=== PATIENT | female | born 1985 | race Caucasian/White ===

== ENCOUNTER 2025-04-01 05:57 | Day surgery (SDC) | payer BC, SELFPAY ==
[2025-03-31 21:03] VITALS: BP 143/86
[2025-03-31 21:25] LABS: Urine Character Cloudy (Clear)
[2025-03-31 21:26] LABS: Hematocrit 37.9 % (37.0-47.0); Hemoglobin 12.5 g/dL (12.0-16.0); Mean Corp Hgb Conc. 33.0 g/dL (33.0-37.0); Mean Corpuscular Volume 85.0 fL (81.0-99.0); Nucleated Red Blood Cells % 0 %; Platelet Count 181 10^3/uL (130-400); Red Cell Dist. Width 12.9 % (11.5-14.5)
[2025-03-31 21:39] LABS: HCG, Serum Qualitative Screen Negative
[2025-03-31 21:40] LABS: Urine Squamous Cell 0-2 /LPF (Few)
[2025-03-31 21:41] LABS: Urine Red Blood Cell >100 /HPF (0-2)
[2025-03-31 21:45] LABS: ALT (SGPT) 28 U/L (0-35); AST (SGOT) 25 U/L (14-36); Albumin 4.7 g/dl (3.5-5.0); Alkaline Phosphatase 73 U/L (38-126); Blood Urea Nitrogen 14 mg/dl (7-17); Calcium 9.7 mg/dl (8.4-10.2); Carbon Dioxide 26 mmol/L (22-30); Chloride 103 mmol/L (98-107); Glucose 119 mg/dl (70-99); Lipase 103 U/L (23-300); Sodium 137 mmol/L (135-145); Total Protein 8.0 g/dl (6.3-8.2); eGFR > 60.00
[2025-03-31 21:50] LABS: Potassium 4.2 mmol/L (3.5-5.1)
[2025-04-01] VITALS (8 sets, daily range): BP systolic 98–123; BP diastolic 53–72; BMI 29.7
--- NOTE | 2025-04-01 00:04 | ED.GENMED ---
History of Present Illness
<Bill Da Silva MD, Resident - Last Filed: 04/01/25 05:21>
General
Chief Complaint: Abdominal Pain
Source: patient and spouse
Exam Limitations: none
Time Seen by Provider: 03/31/25 23:57
History of Present Illness
History of Present Illness:
39-year-old female who complains of sudden, severe, sharp, intermittent right sided abdominal pain that radiates to the back since 6 PM today and has gotten progressively worse. Not relieved on pain medication. Associated with multiple episodes
of nausea with no vomiting. Zofran did not work to alleviate nausea. Never had a previous clinical presentation like this before. No previous history of kidney stone or usage of loop diuretics. No cough, fever, chills, urinary symptoms, diarrhea,
constipation, fatigue, shortness of breath, chest pain.
Phy Exam
<Bill Da Silva MD, Resident - Last Filed: 04/01/25 05:21>
General Physical Exam
General Presentation: well appearing and no apparent distress
General Skin: warm
General Mental: alert
Cardiovascular Exam
Cardiovascular Exam: regular rate/rhythm and no edema
Course
<Bill Da Silva MD, Resident - Last Filed: 04/01/25 05:21>
Orders/Labs/Results
Orders:
Orders
03/31/25 21:07
Test Result ONCE
03/31/25 21:16
Complete Blood Count/With Diff Urgent
Comprehensive Metabolic Panel Urgent
HCG, Serum Qualitative Screen Urgent
Comment: Notify provider if positive test present
Lipase Urgent
Urinalysis Reflex To Culture Urgent
Date Specimen was Collected: 03/31/25
Time Specimen was Collected: 21:07
Urine Microscopic Reflex Cult Urgent
Urine Culture Urgent
OLGA Source: U
Specimen Description:
Date Specimen was Collected: 03/31/25
Time Specimen was Collected: 21:07
04/01/25 00:25
Ketorolac [Toradol] 30 mg IM NOW STA
04/01/25 00:26
Abdomen/Pelvis wo Contrast CT [CT Abd/pelvis Wo Iv Cont] Urgent
Comment:
Reason For Exam: abdominal pain
04/01/25 02:25
US Abdomen Complete/Upper Urgent
Comment:
Reason For Exam: RUQ abd pain,
04/01/25 05:21
HYDROmorphone [Dilaudid] 0.5 mg IV NOW STA
04/01/25 05:37
Admit/Transfer Patient As Directed
Co-Sign Provider:
Level of Care: Observation services
Assign to:: Medical/Surgical
Physician / Group: Gómez
Diagnosis: biliary colic
Code Status As Directed
Resuscitation Status: Full Code
PRN Pain Medication Management As Directed
May give lesser potent ordered pain med per pt: Yes
preference::
Protocol:: Medication orders for pain may be administered in a
manner that supports deferring to patient preference
when the pt is:
- Requesting an ordered lesser potent pain medication.
Least to most potent pain medications are defined
as: acetaminophen < NSAID < tramadol < opioids
(morphine, oxycodone, hydromorphone).
- Requesting a lesser dose of the same medication IF
ORDERED.
- Requesting a less intrusive route of administration
if both routes are prescribed by the provider (PO <
IV).
04/01/25 Breakfast
NPO
Allow oral meds: Yes
Allow clear liquids: Sips of Clears
04/01/25 07:23
0.9% Sodium Chloride 1000 ml [Nss] 1,000 ml IV 125 mls/hr
Acetaminophen [Tylenol] 650 mg PO Q4HPRN PRN
Ketorolac [Toradol] 10 mg IV Q6HPRN PRN
Ondansetron Injectable [Zofran] 4 mg IV Q6HPRN PRN
04/01/25 07:23
MR Mrcp Without Routine
Comment:
Reason For Exam: cbd dilation, eval obstructing stone
Recent pill cam endoscopy?: No
Activity As Directed
Activity Level: With Assistance
Pneumatic Compression Sleeves As Directed
Type: Knee high
Vital Signs As Directed
Frequency: Per unit guidelines
DX Deep Vein Thrombosis Video Routine
04/01/25 08:00
Famotidine [Pepcid] 20 mg IV Q12
04/01/25 09:30
HYDROmorphone [Dilaudid] 0.5 mg IV Q4HPRN PRN
04/02/25 06:00
Basic Metabolic Panel IN AM
Complete Blood Count/No Diff IN AM
LFT [Oylzc-Vlrx-Ickhtmj] IN AM
Abnormal Lab Results
03/31/25
21:16
MPV 11.1 H fL
(7.4-10.4)
Absolute Lymphs (auto) 1.1 L 10^3/uL
(1.2-3.4)
Lymphocytes % 15.1 L %
(20.5-51.1)
Glucose 119 H mg/dl
(70-99)
Ur Occult Blood Reflex 4+ A
(Negative)
Leukocyte Esterase Rfl 2+ A
(Negative)
Urine RBC >100 A /HPF
(0-2)
Urine Bacteria (Reflex) Moderate A
(Negative)
Urine Albumin (Reflex) 2+ A
(Neg - Trace)
03/31/25 21:16
03/31/25 21:16
Vital Signs
Initial and Last Documented VS:
Initial Vital Signs
Temp Pulse Resp BP Pulse Ox
98.4 F 78 18 143/86 97
03/31/25 21:03 03/31/25 21:03 03/31/25 21:03 03/31/25 21:03 03/31/25 21:03
Last Documented Vital Signs
Temp Pulse Resp BP Pulse Ox
98.4 F 55 18 99/58 99
03/31/25 21:03 04/01/25 04:17 04/01/25 04:17 04/01/25 05:27 04/01/25 05:30
<Adis Spence, DO - Last Filed: 04/01/25 07:44>
Orders/Labs/Results
Orders:
Orders
03/31/25 21:07
Test Result ONCE
03/31/25 21:16
Complete Blood Count/With Diff Urgent
Comprehensive Metabolic Panel Urgent
HCG, Serum Qualitative Screen Urgent
Comment: Notify provider if positive test present
Lipase Urgent
Urinalysis Reflex To Culture Urgent
Date Specimen was Collected: 03/31/25
Time Specimen was Collected: 21:07
Urine Microscopic Reflex Cult Urgent
Urine Culture Urgent
OLGA Source: U
Specimen Description:
Date Specimen was Collected: 03/31/25
Time Specimen was Collected: 21:07
04/01/25 00:25
Ketorolac [Toradol] 30 mg IM NOW STA
04/01/25 00:26
Abdomen/Pelvis wo Contrast CT [CT Abd/pelvis Wo Iv Cont] Urgent
Comment:
Reason For Exam: abdominal pain
04/01/25 02:25
US Abdomen Complete/Upper Urgent
Comment:
Reason For Exam: RUQ abd pain,
04/01/25 05:21
HYDROmorphone [Dilaudid] 0.5 mg IV NOW STA
04/01/25 05:37
Admit/Transfer Patient As Directed
Co-Sign Provider:
Level of Care: Observation services
Assign to:: Medical/Surgical
Physician / Group: Gómez
Diagnosis: biliary colic
Code Status As Directed
Resuscitation Status: Full Code
PRN Pain Medication Management As Directed
May give lesser potent ordered pain med per pt: Yes
preference::
Protocol:: Medication orders for pain may be administered in a
manner that supports deferring to patient preference
when the pt is:
- Requesting an ordered lesser potent pain medication.
Least to most potent pain medications are defined
as: acetaminophen < NSAID < tramadol < opioids
(morphine, oxycodone, hydromorphone).
- Requesting a lesser dose of the same medication IF
ORDERED.
- Requesting a less intrusive route of administration
if both routes are prescribed by the provider (PO <
IV).
04/01/25 Breakfast
NPO
Allow oral meds: Yes
Allow clear liquids: Sips of Clears
04/01/25 07:23
0.9% Sodium Chloride 1000 ml [Nss] 1,000 ml IV 125 mls/hr
Acetaminophen [Tylenol] 650 mg PO Q4HPRN PRN
Ketorolac [Toradol] 10 mg IV Q6HPRN PRN
Ondansetron Injectable [Zofran] 4 mg IV Q6HPRN PRN
04/01/25 07:23
MR Mrcp Without Routine
Comment:
Reason For Exam: cbd dilation, eval obstructing stone
Recent pill cam endoscopy?: No
Activity As Directed
Activity Level: With Assistance
Pneumatic Compression Sleeves As Directed
Type: Knee high
Vital Signs As Directed
Frequency: Per unit guidelines
DX Deep Vein Thrombosis Video Routine
04/01/25 08:00
Famotidine [Pepcid] 20 mg IV Q12
04/01/25 09:30
HYDROmorphone [Dilaudid] 0.5 mg IV Q4HPRN PRN
04/02/25 06:00
Basic Metabolic Panel IN AM
Complete Blood Count/No Diff IN AM
LFT [Ktrfr-Owee-Xqrcpsa] IN AM
Abnormal Lab Results
03/31/25
21:16
MPV 11.1 H fL
(7.4-10.4)
Absolute Lymphs (auto) 1.1 L 10^3/uL
(1.2-3.4)
Lymphocytes % 15.1 L %
(20.5-51.1)
Glucose 119 H mg/dl
(70-99)
Ur Occult Blood Reflex 4+ A
(Negative)
Leukocyte Esterase Rfl 2+ A
(Negative)
Urine RBC >100 A /HPF
(0-2)
Urine Bacteria (Reflex) Moderate A
(Negative)
Urine Albumin (Reflex) 2+ A
(Neg - Trace)
03/31/25 21:16
03/31/25 21:16
Vital Signs
Initial and Last Documented VS:
Initial Vital Signs
Temp Pulse Resp BP Pulse Ox
98.4 F 78 18 143/86 97
03/31/25 21:03 03/31/25 21:03 03/31/25 21:03 03/31/25 21:03 03/31/25 21:03
Last Documented Vital Signs
Temp Pulse Resp BP Pulse Ox
98.4 F 55 18 99/58 99
03/31/25 21:03 04/01/25 04:17 04/01/25 04:17 04/01/25 05:27 04/01/25 05:30
<Bill Da Silva MD, Resident - Last Filed: 04/01/25 05:21>
MDM/Problems Addressed
Differential Diagnosis Includes:
ureteral colic, diverticulitis, cholecystitis, cholangitis, pancreatitis, bile duct stone/ tumour
MDM/Problems Addressed:
- CBC unremarkable
- CMP unremarkable
- CT abdomen pelvis unremarkable
- UA shows 100+ rbc ( patient is having menstrual period), moderate bacteria, 2+ leucocyte esterase
- RUQ u/s shows dilated common bile duct, patient needs MRCP
will admit patient for MRCP.
<Bill Da Silva MD, Resident - Last Filed: 04/01/25 05:21>
*Pulse Oximetry
SaO2: 97
Oxygen Mode of Delivery: Room air
Patient hypoxic: no
*Critical Care Note
Total Time (30-74mins, 75-104mins- exclusive of procedures): Not Applicable
<Adis Spence DO - Last Filed: 04/01/25 07:44>
Update Note
Update Note:
NAME: SHRUTHI MILLER
DATE OF EXAM: 04/01/2025
Patient No: [id number]
Physician: PHILIPP
Date of : 1985
Past Medical History (entered by Technologist):
Reason For Exam (entered by Technologist): back pain, nausea
Other Notes (entered by Technologist): no prior
Additional Information (per [facility]):
CT abdomen/pelvis without contrast
IMPRESSION:
-No acute abnormality identified in the abdomen or pelvis
-Mild cholelithiasis without evidence of acute cholecystitis
-No evidence of ureteral stones, hydronephrosis, or perinephric stranding
-Probable appendectomy
Case finalized on 04/01/25 01:20 EST
Isai Blackman MD
This report has been electronically signed and verified by the Radiologist whose name is printed above.
ED Attending Note
<Bill Da Silva MD, Resident - Last Filed: 04/01/25 05:21>
-
Portions of this chart may have been created with voice recognition software.� Occasional wrong word or��sound alike� substitutions may have occurred due to the inherent limitations of voice recognition software.
<Adis Spence DO - Last Filed: 04/01/25 07:44>
ED Attending Note
Patient seen and examined by attending physician: Yes
ED Attending Note:
Note:
CHIEF COMPLAINT(S)
Severe upper right abdominal pain radiating to the back.
HISTORY OF PRESENT ILLNESS
The patient is a 39-year-old male presenting with severe upper right abdominal pain that radiates to the back. The pain was noted by the patient to involve the right upper quadrant of the abdomen as well. He describes having recurrent episodes of
pain. Upon arrival at the facility, the patient mentioned vaginal bleeding, attributable to menstruation. The patient has a history of recurrent urinary tract infections (UTIs) occurring thrice over several months, with cultures revealing
Streptococcus Group B in one instance. However, he is currently asymptomatic with respect to urinary issues. Urinalysis conducted showed potential contamination, though without immediate concern.
Further lab work and a computed tomography (CT) scan were unremarkable for acute pathology, suggesting the possibility of biliary colic from a gallstone that has passed. The patient has experienced similar issues in the past, with gallstones managed
conservatively. Previous evaluations revealed gallstones that were not deemed large enough for surgical removal at the time. The patient had a gastrointestinal evaluation at [facility] and was due for a routine review.
PAST MEDICAL AND SURGICAL HISTORY
History of gallstones.
REVIEW OF SYSTEMS
- Gastrointestinal: Upper right abdominal pain with radiation to the back.
- Genitourinary: History of recurrent urinary tract infections, currently asymptomatic.
PHYSICAL EXAM
General: Alert, mild acute distress.
Skin: Warm, dry.
Head: Normocephalic, atraumatic.
Neck: Supple, trachea midline.
Eye Ears, Nose, Mouth and Throat: Oral mucosa moist.
Cardiovascular: Normal peripheral perfusion, no edema.
Respiratory: Respirations are non-labored.
Gastrointestinal: Tenderness in the right upper quadrant. Negative Casper sign
Back: Normal range of motion, normal alignment.
Musculoskeletal: Normal range of motion, normal strength.
Neurological: Alert and oriented to person, place, time, and situation, no focal neurological deficit observed.
Psychiatric: Cooperative, appropriate mood & affect.
PROBLEM LIST
Acute Problems:
- Biliary colic due to passing gallstone
- Recurrent urinary tract infections (UTIs)
PLAN
- The patient is advised to follow up with surgery for evaluation of possible gallbladder removal, particularly considering the recurrent nature of the gallstone issues and prior history.
- Recommendation for an ultrasound to further evaluate the gallstones if desired by the patient to clarify the current situation.
- Continue with outpatient follow-up at the usual schedule unless symptoms worsen.
DIFFERENTIAL DIAGNOSIS
The Differential Diagnosis includes, in no particular order and is not limited to:
1. Biliary colic
2. Cholecystitis
3. Peptic ulcer disease
4. Pancreatitis
5. Hepatitis
6. Nephrolithiasis
7. Pleuritic pain
8. Musculoskeletal pain
9. Appendicitis
10. Herpes zoster
NAME: SHRUTHI MILLER
DATE OF EXAM: 04/01/2025
Patient No: [id number]
Physician: RAAD^Ha
Date of : 1985
Past Medical History (entered by Technologist):
Reason For Exam (entered by Technologist): f/u to ct. eval gb. ruq pain
Other Notes (entered by Technologist): gb sludge, multiple polyps, gravel.
2 stones vs. polyps measures(not mobile)
Additional Information (per [facility]):
US abdomen
IMPRESSION:
Cholelithiasis without cholecystitis. Small gallbladder polyps of no clinical significance. Negative Casper sign. Common bile duct dilated at 7 mm; consider MRCP.
Case finalized on 04/01/25 04:49 EDT
Yaniv Lewis M.D.
This report has been electronically signed and verified by the Radiologist whose name is printed above.
Discharge Plan
Departure
Patient Disposition: Admit
Date of Disposition: 04/01/25
Time of Disposition: 05:16
Presentation/result/management discussed w/ accepting MD/DO: Hospitalist
Patient with high blood pressure during this ER visit?: Yes
Discharge Problem:
Gallstone
Interventions
Interventions:
*Risk Screen - Suicide Last Done: 03/31/25 21:03
*General Assessment Last Done: 04/01/25 04:18
*Neglect/Abuse Screening Last Done: 04/01/25 04:18
*ED- Fall Risk Assessment Last Done: 04/01/25 00:46
*ED COVID-19 Vaccine History Last Done: 04/01/25 04:17
*ED Influenza Vaccine History Last Done: 04/01/25 04:17
GT-Eyrytu-Cajioewjis Assessment Last Done: 04/01/25 00:44
[2025-04-01] MEDS: TORADOL 30 MG IM (00:35)
[2025-04-01] MEDS: DILAUDID 0.5 MG IV (05:32)
--- NOTE | 2025-04-01 05:32 | HPS.HSE ---
Family Physician
-
Family Physician: Joya Canales MD
Chief Complaint
-
Abdominal pain
History of Present Illness
This is a 39-year-old female with past medical history significant for prior C-sections, appendectomy and tonsillectomy who presents to the emergency department with abdominal pain.
She reports onset of right upper quadrant abdominal pain that radiates to the back. She denies any vomiting. She denies any urinary symptoms including dysuria frequency urgency or incontinence. She denies any fevers or chills. She denies any
prior such symptoms. She denies constipation.
She attempted to put some warm pads and a right upper quadrant but she had had continued pain.
Patient states she has history of biliary stones and has been followed by GI at [facility], [place]. He states they have been following the size 'and it has been less than 7 mm'. She is pending a follow-up examination at the end of the year.
In the emergency department she was afebrile, blood pressure was 99/50 with a pulse of 55 and she was satting 97% on room air.
CBC was unremarkable. Electrolyte BUN/creatinine were normal. LFTs were normal.
She had a right upper quad ultrasound which showed cholelithiasis without cholecystitis. Common bile duct was [address]
CT of the abdomen pelvis without any evidence of small bowel obstruction.
Medical History
Past Medical History
Past Medical History: Reports None
Past Surgical History: Reports Appendectomy, and Tonsilectomy
Social History
Tobacco: Non-smoker
Alcohol: None
Drug: None
Family History
Family History: Not pertinent
Allergies / Home Medications
Allergies reflects when Allergies were last updated in [facility]
Home Medications with original date entered in [facility]
Allergy/Medication List:
Allergies
Allergy/AdvReac Type Severity Reaction Status Date / Time
No Known Allergies Allergy Unverified 03/31/25 21:03
Review of Systems
-
History Source: Patient
Constitutional: Reports No Symptoms
EENT: Reports No Symptoms
Respiratory: Reports No Symptoms
Cardiac: Reports No Symptoms
Abdomen/GI: Reports Abdominal Pain and Nausea
: Reports No Symptoms
Musculoskeletal: Reports No Symptoms
Skin: Reports No Symptoms
Neurological: Reports No Symptoms
Endocrine: Reports No Symptoms
Hematologic/Lymphatic: Reports No Symptoms
Psych: Reports No Symptoms
Physical Exam
Vital Signs
Vital Signs
Temp Pulse Resp BP Pulse Ox
98.4 F 55 18 99/53 97
03/31/25 21:03 04/01/25 04:17 04/01/25 04:17 04/01/25 04:17 04/01/25 04:17
Physical Exam
General: Well Developed, Well Nourished and No Apparent Distress
HEENT: NormoCephalic, Moist mucous membranes and Atraumatic
Respiratory: Clear
Cardiac: S1/S2 and Regular Rhythm; No Murmur or Rub
GI: Soft, Non Distended and Normal Bowel Sounds; No Organomegaly
Rectal: Deferred by Provider
Musculoskeletal: No Clubbing, No Cyanosis and No Edema
Skin: No Rash
Neuro: AO x 3 and Nonfocal/grossly intact
Laboratory Results
-
03/31/25 21:16
03/31/25 21:16
Laboratory Results
Total Bilirubin 1.0 mg/dl (0.2-1.3) 03/31/25 21:16
AST 25 U/L (14-36) 03/31/25 21:16
ALT 28 U/L (0-35) 03/31/25 21:16
Alkaline Phosphatase 73 U/L (38-126) 03/31/25 21:16
Lipase 103 U/L (23-300) 03/31/25 21:16
Data Reviewed
-
CT Scan: Report Reviewed by me
Ultrasound: Report Reviewed by me
Lab Data: Labs Reviewed by me
Impression/Plan
-
IMPRESSION:
39-year-old presents to the emergency department with acute episode of right upper quadrant abdominal pain. She has no fevers or chills. Lipase and LFTs were normal. Labs otherwise unremarkable. Ultrasound and CT scan shows cholelithiasis
without cholecystitis. Common bile duct is 7 mm of dilation. No small bowel obstruction.
PLAN:
Biliary colic
-Admit to MedSurg observation
-N.p.o. for now
-Pain control antiemetics and famotidine with PPI
-IV hydration until tolerating p.o.
-CBD 7 mm but normal lipase and normal LFTs unlikely CBD. No stones seen on ultrasound or CT scan. Trend LFTs for now. MRCP
DVT prophylaxis�SCDs
CODE STATUS�full code
--- NOTE | 2025-04-01 07:08 | W.PN.HOSP.TC ---
Addendum entered and electronically signed by Sy Burdick MD 04/01/25 21:25:
I called and updated patient on the Abdominal MRI results. She is in agreement with antibiotics.
Original Note:
Today's Communication/Plan
-
Questionable acute cholecystitis, but in setting of RUQ pain and gallbladder wall thickening on MRI Abdomen, will start antibiotics
Surgery consulted for possible lap cristo
Assessment / Plan
Assessment / Plan
Physical Exam
General: Well Developed, Well Nourished and No Apparent Distress
HEENT: NormoCephalic, Moist mucous membranes and Atraumatic
Respiratory: Clear
Cardiac: S1/S2 and Regular Rhythm
GI: Soft, Non Distended and Normal Bowel Sounds
Musculoskeletal: No Cyanosis and No Edema
Skin: Warm. Dry.
Neuro: AAO x 3 and Nonfocal/grossly intact
Assessment/Plan
39-year-old female with past medical history significant for prior C-sections, appendectomy and tonsillectomy who presented to the emergency department with abdominal pain.
She reported onset of right upper quadrant abdominal pain that radiates to the back. She denied any vomiting. She denied any fevers or chills.
Patient states she has history of biliary stones and has been [facility] He states they have been following the size 'and it has been less than 7 mm'. She is pending a follow-up examination at the end of the year.
She had a right upper quad ultrasound which showed cholelithiasis without cholecystitis. Common bile duct was [address]
CT of the abdomen pelvis without any evidence of small bowel obstruction.

Biliary colic
Cholelithiasis
Mild Gallbladder Wall Thickening on Abdominal MRI
-N.p.o. for now
-Pain control antiemetics and famotidine with PPI
-IV hydration until tolerating p.o.
-MRCP showed gallbladder wall thickening, could not rule out cholecystitis -- so although no leukocytosis or fever, start Rocephin and Flagyl
-Surgery consulted
DVT prophylaxis�SCDs. Lovenox.
CODE STATUS�full code
Anticipated Discharge: 24 - 48 hours
Subjective/Interval History
-
Date of Service: April 01, 2025
Patient was seen and examined. She reported still having right upper quadrant pain.
Objective Data
-
Labs:
Laboratory Results
03/31/25
21:16
WBC 7.3
Hgb 12.5
Hct 37.9
Plt Count 181
Sodium 137
Potassium 4.2
Chloride 103
Carbon Dioxide 26
BUN 14
Creatinine 0.9
Glucose 119 H
Calcium 9.7
Total Bilirubin 1.0
AST 25
ALT 28
Alkaline Phosphatase 73
Vital Signs:
Vital Signs
Temp Pulse Resp BP Pulse Ox
98.4 F 55 18 99/58 99
03/31/25 21:03 04/01/25 04:17 04/01/25 04:17 04/01/25 05:27 04/01/25 05:30
--- NOTE | 2025-04-01 08:00 | PTCARENOTE ---
Patient arrived from ED via stretcher @07:20, ambulated to balanced standing scale and bedside, VSS, pain level 2 RUQ, admission questions completed at bedside.
[2025-04-01] MEDS: PEPCID 20 MG IV ×2 (08:25→19:59)
[2025-04-01] MEDS: NSS 1000 IV ×2 (08:25→21:41)
[2025-04-01] MEDS: NSS (PRESERVATIVE FREE) 8 ML IV ×2 (08:25→19:59)
--- NOTE | 2025-04-01 12:19 | CM ---
Initial assessment completed with pt at bedside
Pt is a 39yr old female admitted on obs for biliary colic. NPO for now with pain management and hydration
At baseline, pt lives with her and kids and is indep.
Pt anticipates dc to home with no needs
PCP; Joya Canales
Pharm; [facility]
PLAN; Home with no needs
[2025-04-01] MEDS: TYLENOL 650 MG PO (18:20)
[2025-04-01] MEDS: STERILE WATER FOR INJECTION 20 ML IV (21:41)
[2025-04-01] MEDS: ROCEPHIN 2000 MG IV (21:41)
[2025-04-01] MEDS: LOVENOX 40 MG SC (21:48)
[2025-04-01] MEDS: FLAGYL 500 MG 100 IV (21:56)
[2025-04-02] VITALS (16 sets, daily range): BP systolic 114–140; BP diastolic 51–80
[2025-04-02] MEDS: FLAGYL 500 MG 100 IV ×3 (05:41→23:41)
[2025-04-02 07:46] LABS: Hematocrit 33.9 % (37.0-47.0); Hemoglobin 11.6 g/dL (12.0-16.0); Mean Corp Hgb Conc. 34.2 g/dL (33.0-37.0); Mean Corpuscular Volume 85.0 fL (81.0-99.0); Nucleated Red Blood Cells % 0 %; Platelet Count 150 10^3/uL (130-400); Red Cell Dist. Width 12.8 % (11.5-14.5)
[2025-04-02 08:02] LABS: ALT (SGPT) 24 U/L (0-35); AST (SGOT) 23 U/L (14-36); Albumin 3.7 g/dl (3.5-5.0); Alkaline Phosphatase 62 U/L (38-126); Blood Urea Nitrogen 13 mg/dl (7-17); Calcium 8.2 mg/dl (8.4-10.2); Carbon Dioxide 23 mmol/L (22-30); Chloride 110 mmol/L (98-107); Estimated Creatinine Clearance 123 ml/min; Glucose 81 mg/dl (70-99); Potassium 4.0 mmol/L (3.5-5.1); Sodium 139 mmol/L (135-145); Total Protein 6.2 g/dl (6.3-8.2); eGFR > 60.00
--- NOTE | 2025-04-02 09:11 | CON.GS ---
Addendum entered and electronically signed by Koko Downing MD 04/02/25 11:28:
I saw and examined the patient independently.
The Classifier Tender's note was reviewed and I agree with the note, assessment and plan except where noted below.
Comment: This is a 39-year-old female who presents with very classic biliary colic with perhaps exacerbation, tender on exam concerning for acute cholecystitis.
Will plan for a laparoscopic cholecystectomy with cholangiogram.
Risks/Benefits/Alternatives, expected postoperative course and possible complications (bleeding, infection, injury to surrounding structures, acute/chronic pain) discussed at length. Patient wishes to proceed with surgery. All questions answered.
Consent obtained.
I spent 60 minutes in total for the care of this patient today including direct patient care and counseling, reviewing labs, imaging, coordination of care, as well as documentation.
Original Note:
Consultation
-
Date/Time Consultation Performed: 04/02/25 0900
Medical History
-
Chief Complaint: RUQ pain
History of Present Illness:
Ms Stafford is a 39 yo female with a h/o x2, appendectomy and biliary colic. She has been following as an outpatient with GI at the main [facility] for surveillance of stones but has not yet been referred to a surgeon. She notes an
episode of biliary colic, usually after having BBQ pork about 3-4 times a year with recent increase in frequency since the of her youngest child over a year ago. She again had an episode of RUQ this weekend after a higher fat meal and symptoms
persisted causing her to present for evaluation. She reports the pain radiates into her back. She denies nausea, vomiting, fevers or chills. The RUQ is tender on exam.
Past Medical History
Past Medical History: Other (cholelithiasis with biliary colic)
Past Surgical History: Appendectomy, (x2) and Tonsilectomy
Social History
Tobacco: Non-Smoker
Alcohol: None
Employment: Employed ([employer])
Family History
Family History: Reviewed & Not Pertinent
Allergies / Home Medications
Allergy/AdvReac Type Severity Reaction Status Date / Time
No Known Allergies Allergy Unverified 03/31/25 21:03
Review of Systems
-
History Source: Patient and Family
All other systems: Negative unless noted
A 10 point review of systems was completed, and was negative except as per HPI.
Physical Exam
Vital Signs
Temp Pulse Resp BP Pulse Ox
98.1 F 66 18 119/70 100
04/02/25 06:31 04/02/25 06:31 04/02/25 06:31 04/02/25 06:31 04/02/25 06:31
04/01/25 04/02/25 04/03/25
06:59 06:59 06:59
Actual Weight 85.865 kg
Body Mass Index (BMI) 29.7
Lab Results
04/02/25 06:28
04/02/25 06:28
WBC 3.5 10^3/uL (4.8-10.8) L 04/02/25 06:28
Hgb 11.6 g/dL (12.0-16.0) L 04/02/25 06:28
Hct 33.9 % (37.0-47.0) L 04/02/25 06:28
Plt Count 150 10^3/uL (130-400) 04/02/25 06:28
Abs Immat Gran (auto) 0.0 10^3/uL (0-0.05) 04/02/25 06:28
Neutrophils % 41.1 % (42.2-75.2) L 04/02/25 06:28
Physical Exam
General: Well Developed and Well Nourished
HEENT: Normocephalic and Moist Mucous Membranes
Respiratory: Non Labored Respirations
GI: Soft and Tender (RUQ)
Skin: Warm and Dry
Neuro: Awake, Alert and AO x 3
Psych: Calm
Data Reviewed
-
CT Scan: Image Personally Visualized and interpreted, Report Reviewed by me, Discussed with Physician, Discussed with Patient and Discussed with Family
Ultrasound: Image Personally Visualized and interpreted, Report Reviewed by me, Discussed with Physician, Discussed with Patient and Discussed with Family
MRI: Image Personally Visualized and interpreted, Report Reviewed by me, Discussed with Physician, Discussed with Patient and Discussed with Family
Labs: Labs Reviewed by me, Discussed with Physician and Discussed with Patient
Old Records: Reviewed
Assessment / Plan
-
39 yo female with h/o recurrent biliary colic presenting with persistent RUQ pain. CT with borderline hydropic gallbladder with dilated gallbladder with multiple stones on US. MRCP done in follow up with sludge/stones with wall thickening noted.
Given ongoing pain and symptoms, suspect acute calculous cholecystitis. No leukocytosis. LFT's WNL.
Plan:
NPO for or today for lap cristo with ioc
Continue empiric abx preop
Analgesics/antiemetics
SCDs for VTE ppx
Discussed with hospitalist, will transfer pt to surgery service
[2025-04-02] MEDS: NSS (PRESERVATIVE FREE) 8 ML IV ×2 (09:44→21:45)
[2025-04-02] MEDS: PEPCID 20 MG IV ×2 (09:44→21:46)
--- NOTE | 2025-04-02 11:11 | W.SUR.PREOP ---
Pre-Operative Surgical Note
-
I have examined this patient prior to the performance of the scheduled procedure.
The patient's condition is unchanged from the time of the current History and
Physical and the patient is able to undergo the scheduled procedure.
--- NOTE | 2025-04-02 11:41 | CM ---
Reviewed the chart notes. Patient scheduled for laparoscopic cholecystectomy with cholangiogram today. CM continues to be available to patient/family and is monitoring medical plan for needs at discharge.
Plan: Discharge plans will depend on the patient's progress after surgery.
--- NOTE | 2025-04-02 12:55 | W.IMMPOSTOP ---
Surgical Immed Post Op Note
-
Primary Surgeon: Koko Downing MD
Assisting Surgeon: None
Pre-op Diagnosis: Biliary colic
Post-op Diagnosis: Biliary colic, chronic cholecystitis
Procedure Performed: Laparoscopic cholecystectomy with cholangiogram
Anesthesia Type: General
Specimen / Cultures: Gallbladder and contents
Estimated Blood Loss: 3 cc
Complications: None
Operative Findings: Some adhesions to the anterior surface of the gallbladder consistent with chronic inflammation. Critical view of safety obtained prior to a cholangiogram which demonstrated normal biliary anatomy and no distal filling defects.
Duct ligated with a clip followed by 0 PDS Endoloop.
POST OP PLAN:
Imaging: None
Labs: Routine AM
Diet: Advance to Regular as tolerated
Analgesia: Tylenol 650mg q6 Valente, Dilaudid 0.5mg q2h PRN
Neuro/vascular checks: Per unit protocol
AC/AP: Hold Therapeutic AC, Ok for DVT PPx
Activity: Ad Roxie
Wound/Incisions/Drains: Routine
Abx: Does not need antibiotics on discharge.
Dispo: RNF, anticipate discharge home today versus tomorrow pending clinical course.
--- NOTE | 2025-04-02 12:58 | OR.RPT ---
Operative Report
Operative Report
Patient Name: Jm Stafford
: 1985
Date of Operation: 04/02/2025
Preoperative Diagnosis: Biliary colic
Postoperative Diagnosis: Biliary colic, chronic cholecystitis
Procedure(s):
Laparoscopic Cholecystectomy with Cholangiogram
Surgeon(s):
Dr. Downing
Laboratory Technical Specialist(s):
None
Anesthesia: General
Estimated Blood Loss: 3 cc
Urine Output: None
Drains/Lines/Implants: None
Specimens:
1. Gallbladder and contents
HPI/Surgical Indications:
This is a 39-year-old female who presents with 2 days of postprandial right upper quadrant abdominal pain, in the setting of multiple previous attacks over the past few years and known gallstones. Exam, labs and imaging are consistent with early
acute cholecystitis versus biliary colic. Risks/Benefits/Alternatives were discussed at length, and the patient agreed to proceed with surgery.
Operative Findings: Some adhesions to the anterior surface of the gallbladder consistent with chronic inflammation. Critical view of safety obtained prior to a cholangiogram which demonstrated normal biliary anatomy and no distal filling defects.
Duct ligated with a clip followed by 0 PDS Endoloop.
Procedure Description:
The patient was brought to the Operating Room and placed in the supine position with one arm tucked. Following uneventful induction of general endotracheal anesthesia, an orogastric tube was placed. The abdomen was prepped and draped in the usual
sterile fashion. A timeout was performed confirming the procedure, consent, and that IV antibiotics were infused and sequential compression devices were confirmed to be on. The abdomen was entered using a left subcostal Veress technique which
required a single pass followed by a 5 mm right upper quadrant Optiview trocar. Pneumoperitoneum to 15 mmHg pressure was obtained without difficulty and we confirmed that no injury had occurred during our entry. The patient was positioned in
reverse Trendelenberg and rotated with the right side up slightly. Two 5 mm trocars were then placed along the right subcostal margin, followed by a 12 mm port in the epigastrium. There was some adhesions to the anterior surface of the gallbladder
which were lysed with electrocautery and blunt dissection consistent with chronic cholecystitis. A locking grasping forceps was placed on the fundus of the gallbladder where it was then retracted cephalad and to the right. Using appropriate
grasping instruments, the peritoneum overlying the triangle of Calot was incised and extended superiorly on both the anterior and posterior gallbladder yancey. The infundibulum was dissected off the cystic plate. The cystic triangle was dissected
until a critical view of safety was achieved. The cystic artery was medialized, dissected and controlled with 2 proximal clips and 1 distal. The cystic duct/gallbladder junction in turn was identified, dissected circumferentially and a clip was
placed. A ductotomy was made and a cholangiocatheter on an Joya clamp was inserted into the cystic duct. A C-arm was draped and brought into the field. An intra-operative cholangiogram was performed and was noted to have:
No filling defects in the biliary tree
No significant biliary dilation
Brisk flow of contrast into the duodenum
Normal biliary anatomy
The catheter was then removed and the cystic duct was controlled with a clip followed by 0 PDS Endoloop. After ensuring both the artery and duct were divided, the gallbladder was freed from the liver using electrocautery. There was some spillage
of bile from our ductotomy, but no spillage of stones. The gallbladder bed was inspected and excellent hemostasis was obtained. The gallbladder was extracted through the 12 mm trocar site using an endocatch bag. The abdomen was again irrigated and
excellent hemostasis was assured. All remaining trocars were then removed and the pneumoperitoneum was evacuated. The 12 mm trocar site was closed using 0 PDS suture. All trocar sites were closed at the skin level using 4-0 Monocryl followed by
Dermabond. Overall, the patient tolerated the procedure well and was taken to the Recovery Room postoperatively in stable condition.
I was the attending physician and performed the procedure with no assistance. I was present for all portions of the case.
Koko Downing MD
[2025-04-02] MEDS: DILAUDID 0.5 MG IV ×2 (13:36→14:11)
[2025-04-02] MEDS: ZOFRAN 4 MG IV (14:10)
[2025-04-02] MEDS: TORADOL 10 MG IV ×2 (14:41→23:41)
[2025-04-02] MEDS: COMPAZINE 5 MG IV (17:22)
--- NOTE | 2025-04-02 18:08 | PTCARENOTE ---
Received patient from PACU around 1545 via bed in stable condition. Patient still nauseous despite receiving zofran. Compazine IV 5 mg ordered and given IV. Lap sites to abdomen with surgical glue. Call estrada in reach.
[2025-04-02] MEDS: NSS 1000 IV (19:12)
[2025-04-02] MEDS: LOVENOX 40 MG SC (19:13)
[2025-04-02] MEDS: STERILE WATER FOR INJECTION 20 ML IV (21:47)
[2025-04-02] MEDS: ROCEPHIN 2000 MG IV (21:47)
[2025-04-03] MEDS: TYLENOL 650 MG PO ×2 (03:12→08:53)
[2025-04-03 03:15] VITALS: BP 141/76
[2025-04-03] MEDS: ZOFRAN 4 MG IV (03:21)
[2025-04-03] MEDS: TORADOL 10 MG IV ×2 (05:49→12:00)
[2025-04-03 06:28] LABS: Hematocrit 35.5 % (37.0-47.0); Hemoglobin 12.6 g/dL (12.0-16.0); Mean Corp Hgb Conc. 35.5 g/dL (33.0-37.0); Mean Corpuscular Volume 83.5 fL (81.0-99.0); Nucleated Red Blood Cells % 0 %; Platelet Count 176 10^3/uL (130-400); Red Cell Dist. Width 12.8 % (11.5-14.5)
[2025-04-03 06:52] LABS: ALT (SGPT) 43 U/L (0-35); AST (SGOT) 42 U/L (14-36); Albumin 3.9 g/dl (3.5-5.0); Alkaline Phosphatase 72 U/L (38-126); Blood Urea Nitrogen 9 mg/dl (7-17); Calcium 8.2 mg/dl (8.4-10.2); Carbon Dioxide 24 mmol/L (22-30); Chloride 108 mmol/L (98-107); Estimated Creatinine Clearance 123 ml/min; Glucose 119 mg/dl (70-99); Potassium 4.2 mmol/L (3.5-5.1); Sodium 138 mmol/L (135-145); Total Protein 6.6 g/dl (6.3-8.2); eGFR > 60.00
[2025-04-03 07:00] VITALS: BP 125/71
--- NOTE | 2025-04-03 07:36 | W.PN.GS2 ---
Today's Communication / Plan
-
-- DC today
Assessment / Plan
-
Patient is a 39 yo F POD#1 s/p laparoscopic cholecystectomy with IOC
AVSS
Labs notable for normal WBC, stable Hb, normal electrolytes and renal function, normal bilirubin, mild elevation in LFTs, normal ALP
Recovering well overall. Mild nausea most likely related to anesthesia resolving. Mild LFT elevations likely related to operative liver manipulation (will improve/resolve with time). Assess tolerance of diet and pain control with ambulation
throughout the morning; tentative plan for discharge today.
-- Regular diet
-- Pain control: Tylenol, Toradol, Oxycodone
-- Abx: None further needed
-- HLIV
-- DVT: Lovenox, SCDs
-- DC today
Subjective Data
-
Date of Service: April 03, 2025
Nausea has improved and almost completely resolved. Reports some discomfort particularly with ambulation. Passing small amounts of flatus, no BM postoperatively. Afebrile.
Objective Data
-
Intake and Output
04/02/25 04/03/25 04/04/25
06:59 06:59 06:59
Intake Total 2250 / 2250 570 / 570
Output Total 1325 / 1325
Balance 2250 / 2250 -755 / -755
Intake:
Oral fluids 240 / 240
IV fluids (Total) 2250 / 2250 200 / 200
Normosol 200 / 200
IV piggybacks 130 / 130
Output:
Urine, Kirk 650 / 650
Urine, Voided 675 / 675
Other:
Number of approximated MODERATE 3 2
amounts of urine
Vital Signs
Temp Pulse Resp BP Pulse Ox
98.2 F 61 16 141/76 98
04/03/25 03:15 04/03/25 03:15 04/03/25 03:15 04/03/25 03:15 04/03/25 03:15
Lab Results
04/03/25 06:13
04/03/25 06:13
Calcium 8.2 mg/dl (8.4-10.2) L 04/03/25 06:13
Total Bilirubin 0.7 mg/dl (0.2-1.3) 04/03/25 06:13
Direct Bilirubin 0.2 mg/dl (0.0-0.4) 04/02/25 06:28
AST 42 U/L (14-36) H 04/03/25 06:13
ALT 43 U/L (0-35) H 04/03/25 06:13
Alkaline Phosphatase 72 U/L (38-126) 04/03/25 06:13
Total Protein 6.6 g/dl (6.3-8.2) 04/03/25 06:13
Albumin 3.9 g/dl (3.5-5.0) 04/03/25 06:13
Physical Exam
-
Gen: NAD
Abd: soft, mild tenderness, ND, non-peritoneal, incisions c/d/i - no erythema, ecchymosis or drainage
Patient has a kirk catheter: No
Patient has a central line: No
[2025-04-03] MEDS: PEPCID 20 MG IV (08:41)
[2025-04-03] MEDS: NSS IV (08:41)
[2025-04-03] MEDS: NSS (PRESERVATIVE FREE) 8 ML IV (08:41)
[2025-04-03 11:00] VITALS: BP 130/77
== END 2025-04-03 12:28 | disposition home or self-care (01) ==
LOC: SDS 05:57
PROVIDERS: Emergency Medicine; Hospitalist; Internal Medicine; ATTENDING PHYSICIAN Surgery; EMERGENCY PHYSICIAN Student in an Organized Health Care Education/Training Program; FAMILY PHYSICIAN Family Medicine
DX: K80.10 Calculus of gallbladder with chronic cholecystitis without obstruction (principal)
CPT/HCPCS: 47563; 74176; 74183; 74300; 76000; 76700; 80053; 81003; 81015; 82248; 83690; 84703; 85025; 87086; 88304; 96372; 96374; 99285; A4300; A9575